=== PATIENT | female | born 1950 | race Caucasian/White ===

== ENCOUNTER 2020-01-26 11:20 | Inpatient (IN) | payer MEDICARE ==
[~2020-01-26] VITALS: Ht 162.6 cm; Wt 68.2 kg
[~2020-01-26 11:20] MED LIST: ATOR20TA66 PO; CLOP75TA33 PO; FLUO25PO10 PO; LEVO75TA PO; MULT-1085 PO; SUPER B COMPLEX PO; UBID1CAP54 PO
[2020-01-26 11:51] LABS: BASOPHILS % (AUTO) 0.6 % (0-1); EOSINOPHILS # (AUTO) 0.1 X10'3 (0-0.9); EOSINOPHILS % (AUTO) 0.7 % (0-6); HEMATOCRIT 43.7 % (35.0-45.0); LYMPHOCYTES # (AUTO) 2.6 X10'3 (1.1-4.8); LYMPHOCYTES % (AUTO) 31.6 % (21-51); MEAN CORPUSCULAR HEMOGLOBIN 32.6 PG (27.0-31.0); MEAN CORPUSCULAR HGB CONC 34.4 g/dL (33.0-36.5); MEAN CORPUSCULAR VOLUME 94.9 FL (78-98); MONOCYTES # (AUTO) 0.5 X10'3 (0-0.9); MONOCYTES % (AUTO) 6.5 % (2-12); NEUTROPHILS # (AUTO) 5.1 X10'3 (1.8-7.7); NEUTROPHILS % (AUTO) 60.6 % (42-75); PLATELET COUNT 325 X10'3 (140-440); RED CELL DISTRIBUTION WIDTH 13.2 % (11.5-14.5); WHITE BLOOD COUNT 8.4 X10'3 (4.5-11.0)
[2020-01-26 12:08] LABS: ALANINE AMINOTRANSFERASE 20 U/L (12-78); ALBUMIN 3.9 G/DL (3.4-5.0); ALKALINE PHOSPHATASE 122 IU/L (46-116); ANION GAP 8 (8-16); ASPARTATE AMINO TRANSFERASE 22 U/L (10-37); BILIRUBIN,TOTAL 1.6 MG/DL (0.1-1.0); BLOOD UREA NITROGEN 16 MG/DL (7-18); BUN/CREATININE RATIO 15.1 (6.6-38.0); CHLORIDE 105 MMOL/L (99-107); CREATININE 1.06 MG/DL (0.40-0.90); GLUCOSE 111 MG/DL (70-104); POTASSIUM 3.9 MMOL/L (3.5-5.1); SODIUM 143 MMOL/L (135-145); TOTAL CARBON DIOXIDE 30.5 MMOL/L (24-32); TOTAL PROTEIN 7.7 G/DL (6.4-8.2); eGFR 51 ML/MIN
--- NOTE | 2020-01-26 12:34 | NUR ---
Patient reports no CP at this time. She is updated on POC.
[2020-01-26] MEDS ORDERED: magnesium hydroxide 30ml (MOM) UD suspension PO PRN (13:35)
[2020-01-26] MEDS ORDERED: bisacodyl 10mg suppository rectal RC PRN (13:35)
[2020-01-26] MEDS ORDERED: magnesium Cl slow-release 64mg tablet PO PRN (13:35)
[2020-01-26] MEDS ORDERED: magnesium 2GM in 50ml NS 50 ML IV PRN (13:35)
[2020-01-26] MEDS ORDERED: diphenhydrAMINE 25mg capsule PO PRN (13:35)
[2020-01-26] MEDS ORDERED: acetaminophen 650mg rectal suppository RC PRN (13:35)
[2020-01-26] MEDS ORDERED: potassium Cl 20 mEq SR tablet PO PRN ×2 (13:35)
[2020-01-26] MEDS ORDERED: nitroGLYCERIN 0.4mg SUBLingual tab SL PRN (13:35)
[2020-01-26] MEDS ORDERED: magnesium 4gm in 100ml NS 100 ML IV PRN (13:35)
[2020-01-26] MEDS ORDERED: aminophylline 250mg/10ml inj. IV PRN (13:35)
[2020-01-26] MEDS ORDERED: morphine 2 MG/ML inj. syringe IV PRN ×2 (13:35)
[2020-01-26] MEDS ORDERED: acetaminophen 325mg tablet PO PRN ×2 (13:35)
[2020-01-26] MEDS ORDERED: potassium CL 10mEq/100ml bag 100 ML IV PRN ×2 (13:35)
[2020-01-26] MEDS ORDERED: HYDROcodone/acetaminophen 10/325mg tab PO PRN (13:35)
[2020-01-26] MEDS ORDERED: HYDROcodone/acetaminophen 5mg/325mg tablet PO PRN (13:35)
[2020-01-26] MEDS ORDERED: metoprolol tartrate 1mg/ml inj IV PRN (13:35)
[2020-01-26] MEDS ORDERED: mag hydrox/Alum hydrox/simeth 30ml oral suspension PO PRN (13:35)
[2020-01-26] MEDS ORDERED: ondansetron/PF 4mg/2ml inj IV PRN (13:35)
[2020-01-26] MEDS ORDERED: regadenoson 0.4mg/5ml syringe IV ONE (13:35)
[2020-01-26 13:57] LABS: HEMOGLOBIN A1C 5.7 % (4.5-6.2)
[2020-01-26] MEDS ORDERED: aspirin 81mg tab.chew PO ONE (14:00)
[2020-01-26] MEDS: normal saline 1000ml 1,000 ML IV SCH (14:05)
[2020-01-26] MEDS ORDERED: FLUO20CA39 PO (14:55)
[2020-01-26] MEDS ORDERED: LEVO25TA2 PO (14:55)
[2020-01-26] MEDS ORDERED: ATOR20TA PO (14:55)
[2020-01-26 15:06] VITALS: BP 159/90
--- NOTE | 2020-01-26 15:06 | NUR ---
Patient arrived from ED for chest pain. She has no c/o chest pain at this time. Vitals were taken and are in chart
[2020-01-26] MEDS ORDERED: ASPI-1265 PO (17:42)
[2020-01-26] MEDS ORDERED: OMEP-50 PO (17:46)
--- NOTE | 2020-01-26 18:29 | NUR ---
Problems reprioritized. Patient report given, questions answered & plan of care reviewed with Sultana THOMPSON. Patient stable at transfer of care.
--- NOTE | 2020-01-26 18:31 | NUR ---
Patient in room PCU 3023. I have received report from Ian blake and had the opportunity to ask questions and assume patient care.
[2020-01-26 19:00] VITALS: BP 125/55
[2020-01-26] MEDS: K and/or MAG REPLACEMENT MC SCH (20:00)
[2020-01-26] MEDS ORDERED: FLUoxetine 20mg capsule PO SCH (21:00)
[2020-01-26] MEDS: atorvastatin 20mg tablet PO SCH (21:19)
[2020-01-26] MEDS: heparin, porcine 5000 units/ml vial SQ SCH (21:20)
[2020-01-26 23:00] VITALS: BP 144/68
[2020-01-27] VITALS (11 sets, daily range): BP systolic 151–183; BP diastolic 61–92
[2020-01-27 00:38] LABS: BASOPHILS # (AUTO) 0.1 X10'3 (0-0.2); EOSINOPHILS # (AUTO) 0.1 X10'3 (0-0.9); EOSINOPHILS % (AUTO) 1.4 % (0-6); HEMOGLOBIN 13.2 g/dl (12.0-16.0); MONOCYTES # (AUTO) 0.6 X10'3 (0-0.9)
[2020-01-27 00:40] LABS: BASOPHILS % (AUTO) 1.4 % (0-1); HEMATOCRIT 37.9 % (35.0-45.0); LYMPHOCYTES # (AUTO) 3.8 X10'3 (1.1-4.8); LYMPHOCYTES % (AUTO) 40.1 % (21-51); MEAN CORPUSCULAR HEMOGLOBIN 33.5 PG (27.0-31.0); MEAN CORPUSCULAR HGB CONC 34.8 g/dL (33.0-36.5); MEAN CORPUSCULAR VOLUME 96.3 FL (78-98); MEAN PLATELET VOLUME 7.6 FL (7.4-10.4); MONOCYTES % (AUTO) 6.8 % (2-12); NEUTROPHILS # (AUTO) 4.8 X10'3 (1.8-7.7); NEUTROPHILS % (AUTO) 50.3 % (42-75); RED BLOOD COUNT 3.93 X10'6 (4.20-5.60); RED CELL DISTRIBUTION WIDTH 13.1 % (11.5-14.5); WHITE BLOOD COUNT 9.5 X10'3 (4.5-11.0)
[2020-01-27 00:56] LABS: PLATELET COUNT 176 X10'3 (140-440)
[2020-01-27 00:58] LABS: ALANINE AMINOTRANSFERASE 19 U/L (12-78); ALBUMIN/GLOBULIN RATIO 0.9 (1.1-1.5); ALKALINE PHOSPHATASE 95 IU/L (46-116); ANION GAP 5 (8-16); ASPARTATE AMINO TRANSFERASE 14 U/L (10-37); BLOOD UREA NITROGEN 17 MG/DL (7-18); BUN/CREATININE RATIO 16.7 (6.6-38.0); CHLORIDE 107 MMOL/L (99-107); CHOL/HDL RATIO 2.7 (0.00-4.99); CHOLESTEROL 101 MG/DL (0-200); CREATININE 1.02 MG/DL (0.40-0.90); GLUCOSE 101 MG/DL (70-104); HDL CHOLESTEROL 38 MG/DL (35-60); LDL CHOLESTEROL 50 MG/DL (50-100); PHOSPHORUS 4.2 MG/DL (2.3-4.5); POTASSIUM 3.5 MMOL/L (3.5-5.1); SODIUM 143 MMOL/L (135-145); TOTAL CARBON DIOXIDE 30.6 MMOL/L (24-32); TOTAL PROTEIN 6.2 G/DL (6.4-8.2); TRIGLYCERIDES 89 MG/DL (20-135); eGFR 54 ML/MIN
[2020-01-27] MEDS: normal saline 1000ml 1,000 ML IV SCH (05:07)
--- NOTE | 2020-01-27 06:17 | NUR ---
Problems reprioritized. Patient report given, questions answered & plan of care reviewed with Catie THOMPSON.
--- NOTE | 2020-01-27 06:46 | NUR ---
Patient in room PCU 3023. I have received report from hayden tang and had the opportunity to ask questions and assume patient care.
[2020-01-27] MEDS ORDERED: levoTHYROXINE 88mcg tablet PO SCH (08:00)
[2020-01-27] MEDS: K and/or MAG REPLACEMENT MC SCH (08:00)
[2020-01-27] MEDS ORDERED: vitamin B comp w/Vit. C tab 1 TAB TABLET PO SCH (08:00)
[2020-01-27] MEDS ORDERED: aspirin 81mg tab.chew PO SCH (08:00)
[2020-01-27] MEDS ORDERED: pantoprazole 40mg Tablet.DR PO SCH (08:00)
[2020-01-27] MEDS ORDERED: regadenoson 0.4mg/5ml syringe IV PRN (09:10)
[2020-01-27] MEDS: atorvastatin 20mg tablet PO SCH (10:38)
[2020-01-27] MEDS: heparin, porcine 5000 units/ml vial SQ SCH (10:40)
--- NOTE | 2020-01-27 12:13 | NUR ---
Paged PAGER ID: [phone] MESSAGE: Rudy Woo [id number]. KARYI that Adrienne was negative. Thank you- Patt SUAREZ
[2020-01-27] MEDS ORDERED: METO25TA6 PO (14:02)
--- NOTE | 2020-01-27 14:55 | NUR ---
reviewed all discharge instructions with pt.,including f/u appts. prescription confirmed with [facility],new med info provided,SONALI dcd from left hand,site clear,pt. dc'd via wheelchair with all belongings,will stop to [facility] [employer] valuables in safe
[2020-01-27] MEDS ORDERED: metoprolol tartrate 25mg tablet PO SCH (20:00)
--- NOTE | 2020-01-29 15:32 | NUR ---
Case Management DC follow up: spoke to pt via telephone: reports: status post- CP: Denies acute/continuous CP, emergent general pain, SOB at rest, resp distress, NV, vertigo, syncope, REYNOLDS, general/concerning bruising, bleeding, fever, diaphoreses, confusion. Verbalizes understanding of s/s that would warrant 9-11/ER visit for further evaluation. Verbalizes understanding of current and/or new Rx; taking as ordered, no ase noted r/t polypharmacy. Acknowledges need to schedule/keep follow up appts w/PCP/Dr Miller/saw 01/28/20, Specialist/Jenelle, pt waiting for call back to schedule after office receives records r/t recent visit. All questions/concerns addressed and answered at DC; Verbalizes understanding of post status after-care compliance. No further questions at this time.
== END 2020-01-27 14:52 | disposition home or self-care (01) | DRG 392 ==
LOC: ER 11:20 → ED HOLD 13:34 → PCU 3S 15:17
PROVIDERS: ADMIT Family Medicine; ATTEND Family Medicine
DX: K21.9 Gastro-esophageal reflux disease without esophagitis (principal); I24.9 Acute ischemic heart disease, unspecified; I10 Essential (primary) hypertension; E78.5 Hyperlipidemia, unspecified; E03.9 Hypothyroidism, unspecified; F32.9 Major depressive disorder, single episode, unspecified; R07.89 Other chest pain; I25.2 Old myocardial infarction; Z95.1 Presence of aortocoronary bypass graft
CPT/HCPCS: 36415; 71045; 78452; 80053; 80061; 83036; 83735; 84100; 84443; 84484; 85025; 87081; 93005; 93017; 93306; 99285; A9500; G0378; J1644; J2785; J7030

== ENCOUNTER 2020-03-31 09:13 | Emergency (ER) | payer MEDICARE ==
[~2020-03-31] VITALS: Ht 160 cm; Wt 56.0 kg
[~2020-03-31 09:13] MED LIST changes: -CLOP75TA33 PO; +METO25TA6 PO; -MULT-1085 PO; +OMEP-50 PO; -UBID1CAP54 PO
[2020-03-31 10:00] LABS: COLOR,URINE YELLOW (Yellow); GLUCOSE, URINE NEGATIVE (Neg); KETONES,URINE NEGATIVE (Neg); LEUKOCYTE ESTERASE ,URINE TRACE (Neg); NITRITES, URINE NEGATIVE (Neg); OCCULT BLOOD,URINE SMALL (Neg); PH,URINE 5.5 (4.8-8.0); PROTEIN,URINE NEGATIVE (Neg); UROBILINOGEN,URINE 0.2 E.U/dL (0.2-1.0)
[2020-03-31 10:03] VITALS: BP 162/102
[2020-03-31 10:06] LABS: UA COLLECTION TYPE CLN CATCH MIDSTREAM
[2020-03-31 10:09] LABS: BACTERIA,URINE 1+ /HPF (Neg); CLARITY,URINE SLIGHTLY CLOUDY (Clear); RBC,URINE 0-2 /HPF (0-2); SQUAMOUS EPITHELIAL CELL,UR MODERATE /LPF (FEW)
[2020-03-31 10:17] LABS: BASOPHILS # (AUTO) 0.1 X10'3 (0-0.2); BASOPHILS % (AUTO) 0.5 % (0-1); EOSINOPHILS # (AUTO) 0.1 X10'3 (0-0.9); EOSINOPHILS % (AUTO) 1.3 % (0-6); HEMOGLOBIN 14.1 g/dl (12.0-16.0); LYMPHOCYTES # (AUTO) 2.2 X10'3 (1.1-4.8); LYMPHOCYTES % (AUTO) 23.3 % (21-51); MEAN CORPUSCULAR HEMOGLOBIN 33.5 PG (27.0-31.0); MEAN CORPUSCULAR HGB CONC 34.4 g/dL (33.0-36.5); MEAN CORPUSCULAR VOLUME 97.4 FL (78-98); MEAN PLATELET VOLUME 7.1 FL (7.4-10.4); MONOCYTES # (AUTO) 0.7 X10'3 (0-0.9); NEUTROPHILS # (AUTO) 6.5 X10'3 (1.8-7.7); NEUTROPHILS % (AUTO) 67.9 % (42-75); PLATELET COUNT 272 X10'3 (140-440); RED BLOOD COUNT 4.21 X10'6 (4.20-5.60); RED CELL DISTRIBUTION WIDTH 13.4 % (11.5-14.5); WHITE BLOOD COUNT 9.6 X10'3 (4.5-11.0)
[2020-03-31 10:25] LABS: ALANINE AMINOTRANSFERASE 20 U/L (12-78); ALBUMIN 3.6 G/DL (3.4-5.0); ALBUMIN/GLOBULIN RATIO 1.1 (1.1-1.5); ALKALINE PHOSPHATASE 102 IU/L (46-116); ANION GAP 9 (8-16); ASPARTATE AMINO TRANSFERASE 16 U/L (10-37); BILIRUBIN,TOTAL 1.4 MG/DL (0.1-1.0); BLOOD UREA NITROGEN 17 MG/DL (7-18); BUN/CREATININE RATIO 20.5 (6.6-38.0); CALCIUM 9.1 MG/DL (8.5-10.1); CHLORIDE 107 MMOL/L (99-107); CREATININE 0.83 MG/DL (0.40-0.90); GLUCOSE 92 MG/DL (70-104); LIPASE 170 U/L (73-393); POTASSIUM 4.3 MMOL/L (3.5-5.1); SODIUM 143 MMOL/L (135-145); TOTAL CARBON DIOXIDE 27.4 MMOL/L (24-32); eGFR 68 ML/MIN
== END 2020-03-31 11:04 | disposition home or self-care (01) ==
LOC: ER 09:14
DX: R10.84 Generalized abdominal pain (principal); I25.10 Atherosclerotic heart disease of native coronary artery without angina pectoris; I10 Essential (primary) hypertension; I25.2 Old myocardial infarction; Z98.890 Other specified postprocedural states; Z79.899 Other long term (current) drug therapy
CPT/HCPCS: 36415; 74176; 76700; 80053; 81001; 83690; 85025; 87077; 87088; 87186; 99285

== ENCOUNTER 2020-11-20 08:50 | Emergency (ER) | payer MEDICARE ==
[~2020-11-20] VITALS: Ht 160 cm; Wt 68.2 kg
[2020-11-20 09:42] LABS: BASOPHILS % (AUTO) 0.4 % (0-1); EOSINOPHILS # (AUTO) 0.1 X10'3 (0-0.9); EOSINOPHILS % (AUTO) 1.8 % (0-6); HEMATOCRIT 42.1 % (35.0-45.0); HEMOGLOBIN 14.6 g/dl (12.0-16.0); LYMPHOCYTES # (AUTO) 2.1 X10'3 (1.1-4.8); LYMPHOCYTES % (AUTO) 30.5 % (21-51); MEAN CORPUSCULAR HEMOGLOBIN 33.2 PG (27.0-31.0); MEAN CORPUSCULAR HGB CONC 34.6 g/dL (33.0-36.5); MEAN CORPUSCULAR VOLUME 95.8 FL (78-98); MONOCYTES # (AUTO) 0.6 X10'3 (0-0.9); MONOCYTES % (AUTO) 8.9 % (2-12); NEUTROPHILS % (AUTO) 58.4 % (42-75); PLATELET COUNT 300 X10'3 (140-440); RED BLOOD COUNT 4.39 X10'6 (4.20-5.60); RED CELL DISTRIBUTION WIDTH 13.2 % (11.5-14.5); WHITE BLOOD COUNT 6.9 X10'3 (4.5-11.0)
[2020-11-20 09:52] LABS: ALANINE AMINOTRANSFERASE 22 U/L (12-78); ALBUMIN 3.8 G/DL (3.4-5.0); ALKALINE PHOSPHATASE 115 IU/L (46-116); ANION GAP 9 (8-16); ASPARTATE AMINO TRANSFERASE 17 U/L (10-37); BILIRUBIN,TOTAL 1.3 MG/DL (0.1-1.0); BLOOD UREA NITROGEN 13 MG/DL (7-18); BUN/CREATININE RATIO 17.6 (6.6-38.0); CALCIUM 9.7 MG/DL (8.5-10.1); CHLORIDE 105 MMOL/L (99-107); CREATININE 0.74 MG/DL (0.40-0.90); GLUCOSE 102 MG/DL (70-104); POTASSIUM 3.6 MMOL/L (3.5-5.1); SODIUM 144 MMOL/L (135-145); TOTAL CARBON DIOXIDE 30.2 MMOL/L (24-32); TOTAL PROTEIN 7.7 G/DL (6.4-8.2); eGFR 78 ML/MIN
[2020-11-20] MEDS ORDERED: ondansetron 4mg rapidly disintigrating tab PO ONE (10:35)
[2020-11-20] MEDS ORDERED: HYDROcodone/acetaminophen 5mg/325mg tablet PO ONE (10:35)
[2020-11-20] MEDS ORDERED: ketorolac trometh inj. 60 MG/2 ML VIAL IM ONE (10:35)
[2020-11-20 10:41] LABS: CLARITY,URINE CLEAR (Clear); COLOR,URINE YELLOW (Yellow); GLUCOSE, URINE NEGATIVE (Neg); KETONES,URINE NEGATIVE (Neg); LEUKOCYTE ESTERASE ,URINE NEGATIVE (Neg); NITRITES, URINE NEGATIVE (Neg); OCCULT BLOOD,URINE TRACE-INTACT (Neg); PROTEIN,URINE NEGATIVE (Neg); UROBILINOGEN,URINE 0.2 E.U/dL (0.2-1.0)
[2020-11-20 10:44] LABS: UA COLLECTION TYPE CLN CATCH MIDSTREAM
[2020-11-20 10:46] LABS: BACTERIA,URINE 2+ /HPF (Neg); MUCUS STRANDS FEW /LPF (Neg); RBC,URINE 0-2 /HPF (0-2); SQUAMOUS EPITHELIAL CELL,UR FEW /LPF (FEW); WBC,URINE 0-4 /HPF (0-4)
[2020-11-20 11:19] LABS: TROPONIN I < 0.04 NG/ML (0.0-0.05)
[2020-11-20 12:15] VITALS: BP 173/79
[2020-11-20] MEDS ORDERED: PANT-47 PO (12:32)
[2020-11-20] MEDS ORDERED: ONDA4TAB6 PO (12:32)
[2020-11-20] MEDS ORDERED: BISA-78 PO (12:32)
[2020-11-20] MEDS ORDERED: HYDR-3965 PO (12:32)
[2020-11-21] MEDS ORDERED: PROM25SU9 RC (15:50)
[2020-11-21] MEDS ORDERED: ONDA4TAB6 PO (15:50)
== END 2020-11-20 12:42 | disposition home or self-care (01) ==
LOC: ER 08:51
DX: R10.11 Right upper quadrant pain (principal); M54.9 Dorsalgia, unspecified; R11.2 Nausea with vomiting, unspecified; I25.10 Atherosclerotic heart disease of native coronary artery without angina pectoris; I10 Essential (primary) hypertension; I25.2 Old myocardial infarction; Z98.61 Coronary angioplasty status; Z79.899 Other long term (current) drug therapy
CPT/HCPCS: 36415; 74176; 76700; 80053; 81001; 84484; 85025; 87077; 87088; 96372; 99285; J1885; 87186

== ENCOUNTER 2020-11-21 13:59 | Emergency (ER) | payer MEDICARE ==
[~2020-11-21] VITALS: Ht 160 cm; Wt 70.5 kg
[~2020-11-21 13:59] MED LIST changes: +BISA-78 PO; +HYDR-3965 PO; +ONDA4TAB6 PO; +PANT-47 PO
--- NOTE | 2020-11-21 14:09 | NUR ---
PT'S STATES PT HAD AN KS IN THE PAST AFTER HAVING SIMILAR PAIN, REQUIRED STENTS. PT ALSO NAUSEATED. CALLED FOR EKG, WILL ORDER [facility] PROTOCOL
[2020-11-21] MEDS ORDERED: LIDOcaine Viscous 15ml cup MM ONE (14:30)
[2020-11-21] MEDS ORDERED: proCHLORperazine 10 MG/2 ml inj IV ONE (14:30)
[2020-11-21] MEDS ORDERED: mag hydrox/Alum hydrox/simeth 30ml oral suspension PO ONE (14:30)
[2020-11-21] MEDS ORDERED: famotidine/PF 10 mg/ml inj IV ONE (14:30)
[2020-11-21] MEDS ORDERED: ketorolac trometh. 30mg/ml inj. IV ONE (14:35)
[2020-11-21 14:44] LABS: BASOPHILS % (AUTO) 0.5 % (0-1); EOSINOPHILS % (AUTO) 0.5 % (0-6); HEMATOCRIT 40.1 % (35.0-45.0); LYMPHOCYTES % (AUTO) 25.6 % (21-51); MEAN CORPUSCULAR HEMOGLOBIN 33.2 PG (27.0-31.0); MEAN CORPUSCULAR HGB CONC 34.9 g/dL (33.0-36.5); MEAN CORPUSCULAR VOLUME 95.3 FL (78-98); MONOCYTES # (AUTO) 0.6 X10'3 (0-0.9); MONOCYTES % (AUTO) 7.9 % (2-12); NEUTROPHILS % (AUTO) 65.5 % (42-75); PLATELET COUNT 272 X10'3 (140-440); RED BLOOD COUNT 4.21 X10'6 (4.20-5.60); RED CELL DISTRIBUTION WIDTH 13.2 % (11.5-14.5); WHITE BLOOD COUNT 7.7 X10'3 (4.5-11.0)
[2020-11-21 15:03] LABS: ALANINE AMINOTRANSFERASE 22 U/L (12-78); ALBUMIN 3.8 G/DL (3.4-5.0); ALBUMIN/GLOBULIN RATIO 1.1 (1.1-1.5); ALKALINE PHOSPHATASE 110 IU/L (46-116); ANION GAP 11 (8-16); ASPARTATE AMINO TRANSFERASE 16 U/L (10-37); BILIRUBIN,TOTAL 1.8 MG/DL (0.1-1.0); BLOOD UREA NITROGEN 18 MG/DL (7-18); BUN/CREATININE RATIO 21.2 (6.6-38.0); CALCIUM 9.5 MG/DL (8.5-10.1); CHLORIDE 103 MMOL/L (99-107); CREATININE 0.85 MG/DL (0.40-0.90); GLUCOSE 117 MG/DL (70-104); POTASSIUM 3.7 MMOL/L (3.5-5.1); SODIUM 142 MMOL/L (135-145); TOTAL CARBON DIOXIDE 28.4 MMOL/L (24-32); TOTAL PROTEIN 7.4 G/DL (6.4-8.2); eGFR 66 ML/MIN
[2020-11-21 15:10] LABS: LIPASE 95 U/L (73-393)
[2020-11-21] MEDS ORDERED: dicyclomine 10 MG capsule PO ONE (15:25)
[2020-11-21] MEDS ORDERED: PROM25SU9 RC (15:50)
[2020-11-21] MEDS ORDERED: ONDA4TAB6 PO (15:50)
[2020-11-21 16:08] VITALS: BP 148/88
== END 2020-11-21 16:10 | disposition home or self-care (01) ==
LOC: ER 14:00
DX: K29.00 Acute gastritis without bleeding (principal); R10.31 Right lower quadrant pain; I25.10 Atherosclerotic heart disease of native coronary artery without angina pectoris; I10 Essential (primary) hypertension; I25.2 Old myocardial infarction; Z98.61 Coronary angioplasty status; Z95.5 Presence of coronary angioplasty implant and graft
CPT/HCPCS: 36415; 71045; 80053; 83690; 83880; 84484; 85025; 93005; 96374; 96375; 99285; J0780; J1885; J3490; 96365